=== PATIENT | male | born 1960 | race Caucasian/White ===

== ENCOUNTER 2017-07-22 10:22 | Emergency (ER) | payer BC ==
[2017-07-22] MEDS ORDERED: Diazepam 5 MG TAB ONE (12:01)
[2017-07-22] MEDS ORDERED: Ketorolac Tromethamine 60 MG/2 ML VIAL ONE (12:01)
--- NOTE | 2017-07-22 14:19 | RAD ---
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 FINDINGS/IMPRESSION: Images demonstrate the lungs to be well aerated. No evidence of active intrathoracic disease seen. No evidence of effusions, pneumonia, or pneumothorax seen. No evidence of left rib fractures, subluxati ons, or bony lesions. PA image of the chest was unremarkable with no evidence of acute intrathoracic pathology. POS: RICKEY
== END 2017-07-22 13:01 | disposition home or self-care (01) ==
LOC: ERS 10:22
DX: R07.81 Pleurodynia (principal); F17.220 Nicotine dependence, chewing tobacco, uncomplicated; W22.8XXA Striking against or struck by other objects, initial encounter
CPT/HCPCS: 96372; 99406; J1885

== ENCOUNTER 2019-09-19 10:57 | Emergency (ER) | payer BC ==
[2019-09-19] MEDS ORDERED: Acetaminophen 500 MG TAB ONE (11:47)
--- NOTE | 2019-09-19 14:48 | CT ---
CT OF THE BRAIN WITHOUT CONTRAST: INDICATION: History of fall, stepping off roof onto ladder with the ladder slipping and the patient falling back. The patient has a laceration to the he4ad with jaw pain. COMPARISON: None. FINDINGS: No acute infarct, hemorrhage, or hydrocephalus is present. Septum pellucidum and third ventricle are midline. Mastoid air cells and paranasal sinuses are clear. There is a prominent parietal scalp co ntusion near the vertex. IMPRESSION: 1. No acute intracranial abnormality. 2. Prominent scalp contusion along the vertex of the skull POS: BH
--- NOTE | 2019-09-19 14:51 | CT ---
CT OF THE CERVICAL SPINE WITHOUT CONTRAST: INDICATION: A 59-year-old male with fall from a ladder with neck pain. COMPARISON: None. FINDINGS: Craniocervical junction is preserved. There is mild multilevel cervical spondylosis. No acute fract ure or subluxation is evident. The osseous central canal appears relatively well preserved. Prevert ebral soft tissues are normal-appearing. The lung apices are clear. IMPRESSION: 1. No acute fracture or subluxation demonstrated. 2. Mild cervical spondylosis. POS: BH
--- NOTE | 2019-09-19 15:06 | RAD ---
PORTABLE CHEST 1 VIEW: DATE: 09/19/2019. TIME: 11:08 AM. HISTORY: Fall, chest pain. FINDINGS: The heart size is normal. The lungs are expanded without lobar consolidation, pneumothoraces, or ple ural effusions. IMPRESSION: No radiographic evidence of acute cardiopulmonary process. POS: YI
--- NOTE | 2019-09-19 15:13 | CT ---
CT OF THE FACIAL BONES WITHOUT CONTRAST: INDICATION: History of fall with jaw pain. FINDINGS: The nasal bones are intact. The orbital films, orbital wall, orbital floor, and roof are intact. Th e zygomatic arches are intact. The maxillary sinus ward are intact. The pterygoid plates are intac t. The mandible is intact. The cervical spine appears within normal limits. Craniocervical junctio n is normal-appearing. Visualized intracranial contents are normal-appearing. Soft tissues of the f lore appear within normal limits. IMPRESSION: No displaced facial fracture. POS: BH
== END 2019-09-19 14:22 | disposition home or self-care (01) ==
LOC: ERS 10:57
DX: S01.01XA Laceration without foreign body of scalp, initial encounter (principal); F17.220 Nicotine dependence, chewing tobacco, uncomplicated; W18.30XA Fall on same level, unspecified, initial encounter
CPT/HCPCS: 12002; 70450; 70486; 71045; 72125; L0120